=== PATIENT | male | born 1990 | race Caucasian/White ===

== ENCOUNTER 2018-09-28 22:25 | Emergency (ER) | payer SELFPAY ==
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
--- NOTE | 2018-09-29 10:00 | CT ---
DATE OF SERVICE: 09/28/18 CLINICAL DATA: r/o CVA UNENHANCED BRAIN CT: Multislice acquisition through the brain without IV contrast was performed. No priors. No masses or mass effect. No intracranial hemorrhage. No evidence of acute or subacute infarct. No osseous abnormalities. There is mucosal thickening in the ethmoid, sphenoid, maxillary, and frontal sinuses consistent with sinusitis. No other significant findings. IMPRESSION: 1) No acute intracranial abnormalities. 2) Findings consistent with sinusitis. [id number] [facility]
== END 2018-09-28 23:43 | disposition home or self-care (01) ==
LOC: LB.ED 22:25
DX: R20.2 Paresthesia of skin (principal)
CPT/HCPCS: 36415; 70450; 80053; 80307; 81001; 84443; 84484; 85025; 99284; G0480

== ENCOUNTER 2020-04-22 07:37 | Emergency (ER) | payer SELFPAY ==
[2020-04-22] MEDS: HYDROmorphone 2 MG/ML SDV IM ONE (08:00)
[2020-04-22] MEDS ORDERED: traMADol 50 MG Tab ONE (10:00)
[2020-04-22] MEDS ORDERED: Acetaminophen/oxyCODONE 325-10 MG Tab ONE (10:00)
--- NOTE | 2020-04-22 11:42 | CR ---
DATE OF SERVICE: 04/22/2020 CLINICAL DATA: Ankle pain/deformity. LEFT ANKLE: No priors. There is a comminuted, mildly impacted, intra-articular fracture through the distal tibia with fracture lines extending through the posterior malleolus and medial malleolus through the distal tibia. On the lateral view there is an approximately 1 cm separation of the posterior malleolar fragment. No other acute abnormalities. [id number] [facility]
--- NOTE | 2020-04-22 11:47 | CT ---
DATE OF SERVICE: 04/22/2020 CLINICAL DATA: Fracture. LEFT ANKLE CT: Multislice axial acquisition was performed. Axial images and sagittal and coronal reformations are reviewed. There is a comminuted, intra-articular, impacted, spiral fracture through the distal tibia with fracture lines extending through the medial malleolus and posterior malleolus of the distal tibia. There is approximately 7 mm diastasis of the fracture fragments on the sagittal reformations. The talus is also mildly subluxed posteriorly with respect to the distal tibia. No other acute abnormalities. [id number] [facility]
--- NOTE | 2020-04-23 16:08 | ER ---
REASON FOR EMERGENCY ROOM VISIT: Left ankle injury. HISTORY: This 30-year-old man was out checking his traps this morning, when he stepped in a hole and felt a popping sensation in his left ankle area followed by severe pain and swelling. He was brought in. He suffered no other injuries. He denies any numbness involving his toes. He was brought into the emergency room by his . PAST MEDICAL HISTORY: Unremarkable. MEDICATIONS: None. ALLERGIES: NONE TO MEDICATIONS. REVIEW OF SYSTEMS: Pertinent positives and negatives as listed in the HPI. PHYSICAL EXAMINATION: GENERAL: He is afebrile. Heart rate is 82, blood pressure 115/56, respirations 20, O2 sats 100%. EXTREMITIES: His left ankle shows no obvious deformity except for swelling medially which is moderate in nature with some early ecchymosis present. He has distal sensation in all of his toes. His plantar flexion and extension are all intact. He has obvious pain on palpation of his ankle. I did not attempt passive range of motion. RADIOGRAPHS: Plain x-rays and subsequent CT scans disclosed that he has a comminuted left tibial plafond fracture involving the joint. For further details, see CT scan report. IMPRESSION: Left Tibia fracture, comminuted FURTHER EMERGENCY ROOM COURSE: I spoke to the orthopedic surgeon on-call at [place], who felt that this would be better handled in [place]. I then spoke to the orthopedic surgeon on- call, Dr. Chapman, at [facility] in [place]. He reviewed the x-rays and felt that the appropriate course of action would be to have him immobilized in a boot or a posterior splint with ice, elevation, and nonweightbearing. He will arrange for the clinic to call him on Friday for an appointment to be seen as an outpatient. I told the patient that most likely he will require surgical intervention for this type of fracture. He understands and agrees with this plan. All questions were answered. The patient was given tramadol 50 mg, dispensed #10, from the pharmacy here in the emergency department. He was also given a 2nd prescription for tramadol 50 mg, dispensed #20, 1-2 every 4 hours p.r.n. pain. JOSE MARIA/APOLONIA /[id number] [facility]
== END 2020-04-22 10:15 | disposition home or self-care (01) ==
LOC: LB.ED 07:37
DX: S82.842A Displaced bimalleolar fracture of left lower leg, initial encounter for closed fracture (principal); W19.XXXA Unspecified fall, initial encounter
CPT/HCPCS: 73610-LT; 73700-LT; 96372; 99283; 99284; A9270-GY; J1170